=== PATIENT | female | born 1940 | race African-American/Black ===

== ENCOUNTER 2019-08-04 11:56 | Inpatient (IN) | payer OTHER, BC ==
--- NOTE | 2019-08-04 12:34 | PDOC ---
History of Present Illness - General Chief Complaint: Chronic pain Stated Complaint: Weakness Time Seen by Provider: 08/04/19 12:20 History Source: Patient, Family Exam Limitations: No Limitations - History of Present Illness Initial Comments: 08/04/19 12:09 Sources: Patient and Daughter PCP: Dr. Jensen Rheum: Dr. Beach @ [facility] HPI: 79yo F PMH DM, HLD, RA, Fibromyalgia, Asthma presenting for several days of worsening join and muscle pains. Patient receives monthly injections for her RA at [facility] with Dr. Beach, reports that the end of each month her chronic aches and pains worsen until after she received her injection. She was scheduled for an injection at 11AM this morning but when she woke up her aches and pains were bad enough that she couldn't get up and make it to her appointment so her daughter called EMS. She took all of her AM medications as prescribed. Has not tried any Tylenol / ibuprofen etc for this pain episode. Denies chest pain, SOB, fevers, chills, nausea, diarrhea, recent illenss, sick contacts. All: NKDA, Shellfish Meds: Gabapentin, Januvia, Metformin, Mamenda, Folic Acid, Atorvastatin, Infusions for RA PMH: DM, HLD, RA, Fibromyalgia, Asthma PSH: L Knee arthroplasty SHx: No smoking / ETOH / illicits Past History - Travel Traveled outside of the country in the last 30 days: No Close contact w/someone who was outside of country & ill: No - Past Medical History Allergies/Adverse Reactions: Allergies Allergy/AdvReac Type Severity Reaction Status Date / Time No Known Allergies Allergy Verified 08/04/19 12:20 Home Medications: Ambulatory Orders Amlodipine Besylate 5 mg PO DAILY 08/04/19 Atorvastatin Ca [Lipitor] 20 mg PO HS 08/04/19 Diclofenac Sodium/Misoprostol [Diclofenac-Misoprost 50-0.2 Tb] 1 each PO TID PRN 08/04/19 Folic Acid 1 mg PO DAILY 08/04/19 Gabapentin 300 mg PO HS 08/04/19 Gabapentin 600 mg PO BID 08/04/19 Glimepiride 1 mg PO DAILY 08/04/19 Hydrochlorothiazide 25 mg PO DAILY 08/04/19 Memantine HCl 10 mg PO BID 08/04/19 Metformin HCl [Glucophage] 1,000 mg PO BID 08/04/19 Sitagliptin Phosphate [Januvia] 100 mg PO DAILY 08/04/19 Review of Systems - Review of Systems Able to Perform ROS?: Yes Is the patient limited Kyrgyz proficient: Yes Constitutional: No: Chills, Diaphoresis, Fever HEENTM: No: Recent change in vision, Nose Congestion, Throat Pain Respiratory: No: Cough, Shortness of Breath, Wheezing Cardiac (ROS): No: Chest Pain, Edema, Irregular Heart Rate, Palpitations, Chest Tightness ABD/GI: No: Constipated, Diarrhea, Nausea, Poor Appetite, Poor Fluid Intake, Vomiting : No: Dysuria, Discharge, Frequency, Flank Pain Musculoskeletal: Yes: See HPI, Joint Pain, Joint Swelling, Muscle Pain, Muscle Weakness, Joint Stiffness Integumentary: No: Bruising, Erythema, Pallor, Rash Neurological: Yes: Unsteady Gait (secondary to pain / concern over falling). No : Headache, Numbness, Tingling, Weakness Psychiatric: No: Stressors, Change in Appetite Endocrine: No: Increased Urine, Unexplained Weight Gain, Unexplained Weight Loss Hematologic/Lymphatic: No: Anemia, Blood Clots, Easy Bleeding All Other Systems: Reviewed and Negative *Physical Exam - Physical Exam 08/04/19 14:24 Vitals reviewed, AFVSS, tachycardic GEN: Obese, appears stated age, NAD, uncomfortable with extremity movement - stiff. AAOx3. HEENT: NCAT, EOMI, PERRL. Sclera anicteric, non-injected. No facial asymmetry. Moist mucous membranes. Normal voice. Trachea midline. CV: Tachycardic, NSR, S1/S2, no murmurs / rubs / gallops appreciated. LUNG: Diffuse dry crackles in upper/mid lung mckeon, normal work of breathing. No wheezes or cough. Speaking full sentences. GI: Soft, NTND, +BS, no guarding, no rebound. No masses. EXTREMITIES: Difficult ROM 2/2 pain and stiffness. Some overlying join effusions over knees. No LE edema. SKIN: Warm, dry, no rashes appreciated, non-jaundiced. PSYCH: Normal mood and affect. Cooperative and appropriate. NEURO: CN grossly intact. Moving all extremities well. Normal strength and sensation grossly. ED Treatment Course - LABORATORY CBC & Chemistry Diagram: 08/04/19 13:48 08/04/19 13:48 Medical Decision Making - Medical Decision Making 08/04/19 14:05 79yo F PMH DM, HLD, RA, fibromyalgia, asthma presenting with acute on chronic joint/muscle pains in setting of being due for rheum injection today. - CBC, CMP, Cardiac, TSH - UA, UCx - EKG, CXR - IV placed by me in R forearm under US guidance 08/04/19 14:17 - IV pulled out - Tylenol order changed to PO - Plan for discharge if patient stable and ambulatory / pain controlled 08/04/19 14:33 CXR: R base atelectasis, elevated R hemidiaphragm, enlarged heart, no effusion or infiltrate noted 08/04/19 14:36 - WBC 13.1 - mild leukocytosis - Hgb 9.0, no baseline available 08/04/19 15:05 - Toradol ordered - PO Prednisone ordered - UA collected via straight cath, sent 08/04/19 16:31 - Admit for RA flare, inability to ambulate 08/04/19 17:46 - No UTI on UA Dispo: Med/Surg Discharge - Discharge Information Problems reviewed: Yes Clinical Impression/Diagnosis: Rheumatoid arthritis flare, Inability to ambulate due to multiple joints Condition: Guarded - Admission Yes - Follow up/Referral Referrals: Geraldo Moeller MD [Primary Care Provider] - - Patient Discharge Instructions - Post Discharge Activity
[2019-08-04] MEDS ORDERED: SODIUM CHLORIDE 0.9% 500 ML INFUS.BAG IV ONE (12:50)
--- NOTE | 2019-08-04 13:26 | PDOC ---
Attending Attestation - Resident Resident Name: Jonathan Spears - ED Attending Attestation I have performed the following: I have examined & evaluated the patient, The case was reviewed & discussed with the resident, I agree w/resident's findings & plan - HPI HPI: 08/04/19 13:26 HPI: 79yo F PMH DM, HLD, RA, Fibromyalgia, Asthma presenting for several days of worsening join and muscle pains. Patient receives monthly injections for her RA at [facility] with Dr. Beach, reports that the end of each month her chronic aches and pains related to fibromyalgia and RA worsen until after she received her injection. She was scheduled for an injection at 11AM this morning but when she woke up her aches and pains were bad enough that she couldn't get up and make it to her appointment so her daughter called EMS. She took all of her AM medications as prescribed. Has not tried any Tylenol / ibuprofen etc for this pain episode. has not been able to walk 08/04/19 15:06 - Physicial Exam PE: 08/04/19 13:26 Agree with the resident's HPI and PE as documented in the electronic medical record. NAD, well appearing, EOMI, PERRL, nl conjunctiva, anicteric; neck supple. lungs clear, +tachycardic abdomen soft nontender. no rebound, guarding. Back nontender. HOGAN x4, no focal neuro deficits. No peripheral edema. normal color for ethnicity, WWP. +bilateral lower extrem muscle tenderness. 08/04/19 15:05 - Medical Decision Making 08/04/19 13:26 Vital Signs Temp Pulse Resp BP Pulse Ox 98.8 F 109 H 16 132/80 98 08/04/19 12:20 08/04/19 12:20 08/04/19 12:20 08/04/19 12:20 08/04/19 12:36 vitals no fever ddx, RA flare, myalgia, fibromylagia, arthralgia no infectious sx, no systemic sx. doubt vascular pathology. normotensive, +tachycardia, likely pain given analgesia, steroid, for the RA reassess ambulatory trial Mild anemia noted as well as leukocytosis could be related to steroid injections. Troponin is negative, LFTs are normal. Magnesium is mildly low we will replete. TSH is normal admit for RA flare, pain control, unable to ambulate, unsafe for discharge. admitting to Dr Davila, seen by JOEL Landers. 08/04/19 18:49
--- NOTE | 2019-08-04 13:34 | EKG ---
Test Reason : Blood Pressure : / mmHG Vent. Rate : 111 BPM Atrial Rate : 111 BPM P-R Int : 142 ms QRS Dur : 072 ms QT Int : 308 ms P-R-T Axes : 038 -22 020 degrees QTc Int : 418 ms SINUS TACHYCARDIA WITH OCCASIONAL PREMATURE VENTRICULAR COMPLEXES POSSIBLE LEFT ATRIAL ENLARGEMENT LEFT VENTRICULAR HYPERTROPHY POSSIBLE LATERAL INFARCT , AGE UNDETERMINED ABNORMAL ECG NO PREVIOUS ECGS AVAILABLE Confirmed by MD TYREL, KIRA ([id number]) on 08/04/2019 1:34:05 PM Referred By: Confirmed By:KIRA SARAH MD
[2019-08-04] MEDS ORDERED: ACETAMINOPHEN 500 MG TABLET (FP) PO ONE (14:15)
[2019-08-04] MEDS ORDERED: ACETAMINOPHEN 325 MG TABLET (FP) ONE (14:18)
[2019-08-04 14:21] LABS: BASO % 1.2 % (0-2.0); EOS % 3.4 % (0-4.5); HEMATOCRIT 28.5 % (32.4-45.2); LYMPH % 21.2 % (8-40); MCHC 31.4 g/dl (32.0-36.0); MEAN CELL VOLUME 61.8 fl (80-96); MEAN PLT VOLUME 9.4 fl (7.5-11.1); MONO % 6.9 % (3.8-10.2); NEUT % 67.3 % (42.8-82.8); PLATELET COUNT 374 K/MM3 (134-434); RBC 4.62 M/mm3 (3.60-5.2); RDW 17.2 % (11.6-15.6); WHITE BLOOD COUNT 13.1 K/mm3 (4.0-10.0)
[2019-08-04 14:23] LABS: MCH 19.4 pg (25.7-33.7)
[2019-08-04] MEDS ORDERED: KETOROLAC TROMETHAMINE 15 MG/ML VIAL IM ONE (14:40)
[2019-08-04] MEDS ORDERED: predniSONE 20 MG TABLET (UD) PO ONE (15:02)
[2019-08-04 15:03] LABS: ALBUMIN 2.8 g/dl (3.4-5.0); BILIRUBIN,TOTAL 0.2 mg/dL (0.2-1); BLOOD UREA NITROGEN 27.4 mg/dL (7-18); CALCIUM 9.2 mg/dL (8.5-10.1); CREATININE 1.2 mg/dL (0.55-1.3); MAGNESIUM 1.7 mg/dL (1.8-2.4); N-TERMINAL BNP 78.5 pg/ml (5-450); POTASSIUM 5.6 mmol/L (3.5-5.1); TOT PROT 8.2 g/dl (6.4-8.2)
[2019-08-04] MEDS ORDERED: predniSONE 20 MG TABLET (UD) ONE (15:11)
[2019-08-04] MEDS ORDERED: KETOROLAC TROMETHAMINE 15 MG/ML VIAL ONE (15:11)
[2019-08-04] MEDS ORDERED: MAGNESIUM OXIDE 400 MG TABLET (FP) PO ONE (15:14)
[2019-08-04 15:50] LABS: ANISOCYTOSIS 2+; MACROCYTOSIS 0; PLATELET ESTIMATE NORMAL; TARGET CELLS 2+; TEAR DROP CELLS 1+
[2019-08-04] MEDS ORDERED: MAGNESIUM OXIDE 400 MG TABLET (FP) ONE (16:17)
[2019-08-04 17:35] LABS: URINE APPEARANCE Clear; URINE BILIRUBIN Negative (NEGATIVE); URINE COLOR Yellow; URINE GLUCOSE (UA) Negative (NEGATIVE); URINE KETONE Negative (NEGATIVE); URINE LEUK ESTERASE 1+ (NEGATIVE); URINE NITRITE Negative (NEGATIVE); URINE PROTEIN 1+ (NEGATIVE); URINE UROBILINOGEN 0.2 mg/dL (0.2-1.0)
[2019-08-04 18:16] LABS: URINE RBC 2.3 /hpf (0-4); URINE WBC 19.8 /hpf (0-5)
[2019-08-04 18:17] LABS: EPI CELLS 4.9 /HPF (0-5/HPF); HYALINE CASTS 23.84 /lpf (0-8); URINE BACTERIA 2.9 /hpf (NEGATIVE)
[2019-08-04] MEDS ORDERED: SODIUM POLYSTYRENE SULFONATE 15 GM/60 ML BOTTLE PO ONE (19:21)
[2019-08-04] MEDS ORDERED: SENNOSIDES 8.6MG TABLET (FP) PO PRN (19:26)
[2019-08-04] MEDS ORDERED: HEPARIN NA (PORCINE) 5,000 UNITS/ML 1ML VIAL SQ SCH (19:30)
--- NOTE | 2019-08-04 21:13 | HP ---
Admitting History and Physical - Admission Chief Complaint: diffuse joint pain History of Present Illness: 79 year old F with h/o HLD, rheumatoid arthritis, DMII, fibromyalgia presents to ED for evaluation after awakening with acute pain and inability to get out bed. At baseline, pt suffers from chronic pain and is wheelchair bound after a left femur fracture in 2018. She follows with PCP and marketing technology specialist at [facility] and receives monthly injections for her RA. After her fracture in 2018, she was prescribed home PT but did not complete course due to severe deconditioning. Both and daughter and patient reports her chronic pain has been gradually worsening over the last several months. She had an appointment with her marketing technology specialist today (08/04) but did not attend due to the acute nature of her pain. Her daughter activated EMS and pt was taken to [facility] for evaluation. Pt denies fever, chills, nausea, vomiting, chest pain, SOB. In ED: Vitals: BP 132/80, HR 109bpm, RR 16, O2 sat 98%, T 98.8 CXR: R base atelectasis, elevated R hemidiaphragm, enlarged heart, no effusion or infiltrate noted Labs: WBC 13.1, H/H 9/28.5, Cr 1.2, K = 5.6 Pt treated with prednisone 60mg, APAP 975mg and toradol 15mg History Source: Family Member (daughter) Limitations to Obtaining History: Poor Historian - Past Medical History Cardiovascular: Yes: HTN, Hyperlipdemia Reproductive: Yes: Postmenopausal Heme/Onc: Yes: Anemia Musculoskeletal: Yes: Osteoarthritis Rheumatology: Yes: Fibromyalgia, Rheumatoid Arthritis - Past Surgical History Additional Past Surgical History: Left knee replacement Left femur fracture - Advance Directives Advance Directives: Yes: Health Care Proxy ( Elle Becker daughter: [phone] ) - Smoking History Smoking history: Never smoked Have you smoked in the past 12 months: No - Alcohol/Substance Use Hx Alcohol Use: No History of Substance Use: reports: None - Social History Usual Living Arrangement: Yes: With Spouse, With Child ADL: Support Services (pt is WC bound. 100% dependent on daughter, she has no home services) Occupation: Retired History of Recent Travel: No Home Medications - Allergies Allergies/Adverse Reactions: Allergies Allergy/AdvReac Type Severity Reaction Status Date / Time shellfish derived Allergy Verified 01/14/20 21:20 - Home Medications Home Medications: Ambulatory Orders Amlodipine Besylate 5 mg PO DAILY 08/04/19 Atorvastatin Ca [Lipitor] 20 mg PO HS 08/04/19 Diclofenac Sodium/Misoprostol [Diclofenac-Misoprost 50-0.2 Tb] 1 each PO TID PRN 08/04/19 Folic Acid 1 mg PO DAILY 08/04/19 Gabapentin 300 mg PO HS 08/04/19 Gabapentin 600 mg PO BID 08/04/19 Glimepiride 1 mg PO DAILY 08/04/19 Hydrochlorothiazide 25 mg PO DAILY 08/04/19 Memantine HCl 10 mg PO BID 08/04/19 Metformin HCl [Glucophage] 1,000 mg PO BID 08/04/19 Sitagliptin Phosphate [Januvia] 100 mg PO DAILY 08/04/19 Family Medical History Other Family History: Mother (36)asthma. Father (50s) unknown. MGM (79) HTN, OA, MA Review of Systems - Review of Systems Constitutional: reports: Weakness Eyes: reports: No Symptoms HENT: reports: No Symptoms Neck: reports: No Symptoms Cardiovascular: reports: No Symptoms Respiratory: reports: No Symptoms Gastrointestinal: reports: No Symptoms Genitourinary: reports: No Symptoms Breasts: reports: No Symptoms Reported Musculoskeletal: reports: Joint Pain, Muscle Weakness Integumentary: reports: No Symptoms Neurological: reports: Unsteady Gait, Weakness Endocrine: reports: No Symptoms Hematology/Lymphatic: reports: No Symptoms Psychiatric: reports: No Symptoms Physical Examination Vital Signs: Vital Signs Temperature 97.9 F 08/04/19 19:33 Pulse Rate 101 H 08/04/19 19:33 Respiratory Rate 18 08/04/19 19:33 Blood Pressure 133/104 H 08/04/19 19:33 O2 Sat by Pulse Oximetry (%) 96 08/04/19 19:33 Constitutional: Yes: Calm, Obese Eyes: Yes: Conjunctiva Clear, PERRL HENT: Yes: Atraumatic, Normocephalic, Other (POOR DENTITION) Neck: Yes: Supple Cardiovascular: Yes: Regular Rate and Rhythm Respiratory: Yes: Regular, CTA Bilaterally Gastrointestinal: Yes: Normal Bowel Sounds, Soft, Abdomen, Obese ...Rectal Exam: Yes: Deferred Renal/: Yes: Incontinence Musculoskeletal: Yes: Joint Stiffness Extremities: Yes: Other (well healed left knee incision) Edema: No Peripheral Pulses WNL: Yes Peripheral Pulses: Left Radial: 2+, Right Radial: 2+ Integumentary: Yes: WNL Neurological: Yes: Alert, Oriented Psychiatric: Yes: Alert, Oriented Labs: CBC, BMP 08/04/19 13:48 08/04/19 13:48 Imaging - Results Chest X-ray: Report Reviewed (CXR 08/04/2019 Impression: There are no prior studies for comparison. There is an elevated right hemidiaphragm with large heart, unfolded aorta and some minimal atelectatic change at the right base. There is no sign of infiltrate or failure. The bones and soft tissues are intact. Correlation recommended. Reported By: Geraldo Staples MD 08/04/19 [id number]) EKG: Report Reviewed (EKG 08/04/2019 (my read) :ST 111bpm with occ PVCs. Q-waves inferiorly) Problem List - Problems (1) Hyperlipidemia associated with type 2 diabetes mellitus Assessment/Plan: continue lipitor 20mg cardiac-diabetic diet fasting lipids with AM labs Code(s): E11.69 - TYPE 2 DIABETES MELLITUS WITH OTHER SPECIFIED COMPLICATION; E78.5 - HYPERLIPIDEMIA, UNSPECIFIED (2) Diabetes mellitus type 2 in obese Assessment/Plan: hold metformin, glimepiride and januvia insulin SS Fingerstick AC/HS Code(s): E11.69 - TYPE 2 DIABETES MELLITUS WITH OTHER SPECIFIED COMPLICATION; E66.9 - OBESITY, UNSPECIFIED (3) Fibromyalgia Assessment/Plan: PT consult to mobilize pt Code(s): M79.7 - FIBROMYALGIA (4) Rheumatoid arthritis Assessment/Plan: rheum consult pain management - continue APAP, diclofenac and neurontin SW consult in AM to assess for disharge to rehab facility (daughter agrees with short term rehab) Code(s): M06.9 - RHEUMATOID ARTHRITIS, UNSPECIFIED (5) Prophylactic measure Assessment/Plan: daily PT SC heparin 3xdaily turn/position Q2hrs Code(s): Z29.9 - ENCOUNTER FOR PROPHYLACTIC MEASURES, UNSPECIFIED (6) Dementia Assessment/Plan: continue memantine reorient and redirect as needed Code(s): F03.90 - UNSPECIFIED DEMENTIA WITHOUT BEHAVIORAL DISTURBANCE Assessment/Plan Code status: Full code Visit type - Emergency Visit Emergency Visit: Yes ED Registration Date: 08/04/19 Care time: The patient presented to the Emergency Department on the above date and was hospitalized for further evaluation of their emergent condition. - New Patient This patient is new to me today: Yes Date on this admission: 08/04/19 - Critical Care Critical Care patient: No
[2019-08-04] MEDS: GABAPENTIN 300 MG CAPSULE PO SCH (22:25)
[2019-08-04] MEDS: ATORVASTATIN CA 20 MG TABLET (FP) PO SCH (22:25)
[2019-08-04] MEDS: HEPARIN NA (PORCINE) 5,000 UNITS/ML 1ML VIAL SQ SCH (22:25)
[2019-08-04] MEDS: DOCUSATE SODIUM 100 MG CAPSULE (FP) PO SCH (22:25)
[2019-08-04] MEDS: INSULIN SLIDING SCALE (NOVOLOG) 1 VIAL SQ SCH (22:26)
[2019-08-04] MEDS: MEMANTINE HCL 10 MG TABLET (FP) PO SCH (22:27)
[2019-08-04] MEDS: DICLOFENAC SODIUM 25 MG TABLET.DR PO SCH (23:31)
[2019-08-05] MEDS: GABAPENTIN 300 MG CAPSULE PO SCH ×4 (00:57→22:46)
[2019-08-05 01:55] VITALS: BMI 35.7
[2019-08-05] MEDS: INSULIN SLIDING SCALE (NOVOLOG) 1 VIAL SQ SCH ×4 (06:16→22:50)
[2019-08-05] MEDS: HEPARIN NA (PORCINE) 5,000 UNITS/ML 1ML VIAL SQ SCH ×3 (06:16→22:48)
[2019-08-05] MEDS: DOCUSATE SODIUM 100 MG CAPSULE (FP) PO SCH ×3 (06:17→22:47)
--- NOTE | 2019-08-05 07:55 | PN ---
Progress Note, Physician Chief Complaint: Pain persists in joint with right shoulder being the worst. States the swelling is much improved History of Present Illness: 79 y/o female with PMH of RA, HLD, DM, FM, chronic pain presenting with acute pain and inability to get out of bed. Pt is wheelchair bound after left femur fracture in 2018 - Current Medication List Current Medications: Active Medications Acetaminophen (Tylenol -) 650 mg PO Q6H PRN PRN Reason: PAIN LEVEL 4 - 6 Amlodipine Besylate (Norvasc -) 5 mg PO DAILY [facility] Atorvastatin Calcium (Lipitor -) 20 mg PO HS [facility] Last Admin: 08/04/19 22:25 Dose: 20 mg Diclofenac Sodium (Voltaren -) 50 mg PO BID [facility] Last Admin: 08/04/19 23:31 Dose: 50 mg Docusate Sodium (Colace -) 100 mg PO TID [facility] Last Admin: 08/05/19 06:17 Dose: 100 mg Folic Acid (Folic Acid -) 1 mg PO DAILY [facility] Gabapentin (Neurontin -) 300 mg PO [facility] Last Admin: 08/05/19 00:57 Dose: Not Given Gabapentin (Neurontin -) 600 mg PO BID [facility] Last Admin: 08/04/19 22:25 Dose: 600 mg Heparin Sodium (Porcine) (Heparin -) 5,000 unit SQ TID [facility] Last Admin: 08/05/19 06:16 Dose: 5,000 unit Hydrochlorothiazide (Hctz -) 25 mg PO DAILY [facility] Insulin Aspart (Novolog Vial Sliding Scale -) 1 vial SQ [facility]; Protocol Last Admin: 08/05/19 06:16 Dose: 2 units Memantine (Namenda -) 10 mg PO BID [facility] Last Admin: 08/04/19 22:27 Dose: 10 mg Senna (Senna -) 2 tab PO HS PRN PRN Reason: CONSTIPATION - Objective Vital Signs: Vital Signs Temperature 97.4 F L 08/05/19 06:00 Pulse Rate 103 H 08/05/19 06:00 Respiratory Rate 18 08/05/19 06:00 Blood Pressure 136/79 08/05/19 06:00 O2 Sat by Pulse Oximetry (%) 96 08/04/19 22:35 Constitutional: Yes: Well Nourished, No Distress, Calm Eyes: Yes: WNL, Conjunctiva Clear HENT: Yes: WNL, Atraumatic, Normocephalic Neck: Yes: WNL, Supple, Trachea Midline Cardiovascular: Yes: WNL, Regular Rate and Rhythm Respiratory: Yes: WNL, Regular, CTA Bilaterally Gastrointestinal: Yes: WNL, Normal Bowel Sounds ...Rectal Exam: Yes: Deferred Genitourinary: Yes: WNL Breast(s): Yes: WNL Musculoskeletal: Yes: Back Pain, Joint Stiffness, Joint Swelling, Muscle Weakness (wheelchair bound) Extremities: Yes: WNL Edema: No Peripheral Pulses WNL: Yes Peripheral Pulses: Left Radial: 2+, Right Radial: 2+, Left Doralis Pedis: 2+, Right Dorsalis Pedis: 2+, Left Femoral: 2+, Right Femoral: 2+ Integumentary: Yes: Incision (healed knee scar) Neurological: Yes: WNL, Alert, Oriented, Weakness Labs: CBC, BMP 08/04/19 13:48 08/04/19 13:48 - ....Imaging Chest X-ray: Image Reviewed (no effusions or infiltrates) Problem List - Problems (1) Dementia Assessment/Plan: c/w namenda supportive care Code(s): F03.90 - UNSPECIFIED DEMENTIA WITHOUT BEHAVIORAL DISTURBANCE (2) Diabetes mellitus type 2 in obese Assessment/Plan: BGM AC/HS with novolog sliding scale well controlled can restart januvia/glucophage on DC Code(s): E11.69 - TYPE 2 DIABETES MELLITUS WITH OTHER SPECIFIED COMPLICATION; E66.9 - OBESITY, UNSPECIFIED (3) Fibromyalgia Assessment/Plan: appreciate rheumatology comsultation prednisone decreased to 20mg daily x 3 days and then 15mg -wheelchair bound at home/w PT Code(s): M79.7 - FIBROMYALGIA (4) Hyperlipidemia Assessment/Plan: c/w atrovastatin low fat/chol diet Code(s): E78.5 - HYPERLIPIDEMIA, UNSPECIFIED (5) Prophylactic measure Assessment/Plan: FEN Fluids: adequate PO intake Electrolytes: monitor & replete as needed Nutrition: low fat/chol DVT moderate risk sq heparin Dispo Maintain as inpatient full code discharge planning to SNF Code(s): Z29.9 - ENCOUNTER FOR PROPHYLACTIC MEASURES, UNSPECIFIED (6) Rheumatoid arthritis Assessment/Plan: c/w prednisone awaiting records from home rheumotologist-has been on injectables the past Code(s): M06.9 - RHEUMATOID ARTHRITIS, UNSPECIFIED (7) Chronic pain Assessment/Plan: wheelchair bound since 2018 c/w gabapentin c/w PT offered lidocaine patches and pt claims they have been ineffective in the past Code(s): G89.29 - OTHER CHRONIC PAIN Visit type - Emergency Visit Emergency Visit: Yes ED Registration Date: 08/04/19 Care time: The patient presented to the Emergency Department on the above date and was hospitalized for further evaluation of their emergent condition. - New Patient This patient is new to me today: Yes Date on this admission: 08/05/19 - Critical Care Critical Care patient: No - Discharge Referral Referred to [facility] Med P.C.: No
[2019-08-05 09:07] LABS: HEMATOCRIT 25.9 % (32.4-45.2); HEMOGLOBIN 8.2 GM/dL (10.7-15.3); MCHC 31.8 g/dl (32.0-36.0); MEAN PLT VOLUME 9.7 fl (7.5-11.1); PLATELET COUNT 318 K/MM3 (134-434); RBC 4.18 M/mm3 (3.60-5.2); WHITE BLOOD COUNT 9.1 K/mm3 (4.0-10.0)
[2019-08-05 09:16] LABS: MCH 19.7 pg (25.7-33.7)
[2019-08-05 09:28] LABS: BLOOD UREA NITROGEN 33.2 mg/dL (7-18); CALCIUM 8.7 mg/dL (8.5-10.1); CREATININE 1.3 mg/dL (0.55-1.3); MAGNESIUM 1.9 mg/dL (1.8-2.4); POTASSIUM 4.3 mmol/L (3.5-5.1)
[2019-08-05] MEDS ORDERED: predniSONE 20 MG TABLET (UD) PO SCH (10:00)
--- NOTE | 2019-08-05 10:00 | CONSULT ---
Consult Consult Specialty:: Rheumatology - History of Present Illness History of Present Illness: 79 year old Female with h/o HLD, rheumatoid arthritis, DMII, fibromyalgia, s/p left femur fracture in 2018, admitted with significant diffuse pain and inability to walk. The patient is a poor historian, I cannot get information of details of present illness or history of rheumatoid arthritis. [facility] Beach. The patient is on Cimzia SC monthly. She was not in her office and could not remember oif the patient rakes other DMARDs. She has missed doses of the medication , she reported increased pain and was started on Prednisone 20 mg/d. . I left a message to her daughter to get more information. On admission she was given Prednisone 60 mg PO and at the present time she is feeling better and can move her hands well. - History Source History Provided By: Medical Record - Past Medical History Cardio/Vascular: Yes: HTN, Hyperlipdemia Musculoskeletal: Yes: Osteoarthritis Rheumatology: Yes: Fibromyalgia, Rheumatoid Arthritis - Alcohol/Substance Use Hx Alcohol Use: No History of Substance Use: reports: None - Smoking History Smoking history: Never smoked Have you smoked in the past 12 months: No - Social History ADL: Support Services (pt is WC bound. 100% dependent on daughter, she has no home services) Occupation: Retired History of Recent Travel: No Home Medications - Allergies Allergies/Adverse Reactions: Allergies Allergy/AdvReac Type Severity Reaction Status Date / Time shellfish derived Allergy Verified 08/04/19 21:20 - Home Medications Home Medications: Ambulatory Orders Amlodipine Besylate 5 mg PO DAILY 08/04/19 Atorvastatin Ca [Lipitor] 20 mg PO HS 08/04/19 Diclofenac Sodium/Misoprostol [Diclofenac-Misoprost 50-0.2 Tb] 1 each PO TID PRN 08/04/19 Folic Acid 1 mg PO DAILY 08/04/19 Gabapentin 300 mg PO HS 08/04/19 Gabapentin 600 mg PO BID 08/04/19 Glimepiride 1 mg PO DAILY 08/04/19 Hydrochlorothiazide 25 mg PO DAILY 08/04/19 Memantine HCl 10 mg PO BID 08/04/19 Metformin HCl [Glucophage] 1,000 mg PO BID 08/04/19 Sitagliptin Phosphate [Januvia] 100 mg PO DAILY 08/04/19 Review of Systems Unable to obtain ROS, reason: Patient is a poor histori Physical Exam Vital Signs: Vital Signs Temperature 97.4 F L 08/05/19 06:00 Pulse Rate 103 H 08/05/19 06:00 Respiratory Rate 18 08/05/19 06:00 Blood Pressure 136/79 08/05/19 06:00 O2 Sat by Pulse Oximetry (%) 96 08/04/19 22:35 Constitutional: Yes: Mild Distress Eyes: Yes: WNL HENT: Yes: WNL Neck: Yes: WNL Cardiovascular: Yes: WNL Respiratory: Yes: WNL Gastrointestinal: Yes: WNL Musculoskeletal: Yes: Other (Subluxation of MCPs and stigmata of rheumatoid arthritis, and has tenderness and swelling of the left 3rd PIP. No other active joints.) Labs: CBC, BMP 08/05/19 08:00 08/05/19 08:00 Laboratory Tests 08/04/19 08/04/19 08/04/19 13:48 13:48 15:50 Random Glucose 107 H Calcium 9.2 Total Bilirubin 0.2 AST 22 ALT 20 Alkaline Phosphatase 86 Creatine Kinase 123 Troponin I < 0.02 B-Natriuretic Peptide 78.5 Total Protein 8.2 Albumin 2.8 L Urine Appearance Clear Urine pH 5.0 Ur Specific [place] 1.015 Urine Protein 1+ H Urine Glucose (UA) Negative Urine Ketones Negative Urine Blood Negative Urine Nitrite Negative Urine Bilirubin Negative Urine Urobilinogen 0.2 Ur Leukocyte Esterase 1+ H Urine WBC (Auto) 19.8 Urine RBC (Auto) 2.3 Urine Casts (Auto) 23.84 Problem List - Problems (1) Rheumatoid arthritis Assessment/Plan: Rheumatoid arthritis treated probably with biological DMARDs. She was admitted with significant pain - it is not clear where, and was treated with Prednisone 60 mg PO. At the present time she has minimal disease activity and no tenderness in fibrositic tender points. I am waiting for additional information requested to her daughter. Plan: Decrease Prednisone to 20 mg/d and in 3 days decrease to 15 mg. Continue other medications. Labs: ESR. Code(s): M06.9 - RHEUMATOID ARTHRITIS, UNSPECIFIED
[2019-08-05] MEDS: MEMANTINE HCL 10 MG TABLET (FP) PO SCH ×2 (10:08→22:47)
[2019-08-05] MEDS: FOLIC ACID 1 MG TABLET (FP) PO SCH (10:08)
[2019-08-05] MEDS: amLODIPine BESYLATE 5 MG TABLET (FP) PO SCH (10:08)
[2019-08-05] MEDS: HYDROCHLOROTHIAZIDE 25 MG TABLET (FP) PO SCH (10:09)
[2019-08-05] MEDS ORDERED: PT OWN MED DRAWER 7, Y5N ONE ×2 (10:33→12:10)
[2019-08-05] MEDS: DICLOFENAC SODIUM 25 MG TABLET.DR PO SCH ×2 (10:44→22:47)
[2019-08-05] MEDS: ATORVASTATIN CA 20 MG TABLET (FP) PO SCH (22:47)
[2019-08-06] MEDS: INSULIN SLIDING SCALE (NOVOLOG) 1 VIAL SQ SCH ×4 (06:35→21:31)
[2019-08-06] MEDS: DOCUSATE SODIUM 100 MG CAPSULE (FP) PO SCH ×3 (06:36→21:22)
[2019-08-06] MEDS: HEPARIN NA (PORCINE) 5,000 UNITS/ML 1ML VIAL SQ SCH ×3 (06:36→21:22)
--- NOTE | 2019-08-06 07:54 | PN ---
Progress Note, Physician Chief Complaint: Pain persists in joints. States the swelling is much improved from steroids. History of Present Illness: 79 y/o female with PMH of RA, HLD, DM, FM, chronic pain presenting with acute pain and inability to get out of bed. Pt is wheelchair bound after left femur fracture in 2018 - Current Medication List Current Medications: Active Medications Acetaminophen (Tylenol -) 650 mg PO Q6H PRN PRN Reason: PAIN LEVEL 4 - 6 Amlodipine Besylate (Norvasc -) 5 mg PO DAILY [facility] Last Admin: 08/05/19 10:08 Dose: 5 mg Atorvastatin Calcium (Lipitor -) 20 mg PO HS [facility] Last Admin: 08/05/19 22:47 Dose: 20 mg Diclofenac Sodium (Voltaren -) 50 mg PO BID [facility] Last Admin: 08/05/19 22:47 Dose: 50 mg Docusate Sodium (Colace -) 100 mg PO TID [facility] Last Admin: 08/06/19 06:36 Dose: 100 mg Folic Acid (Folic Acid -) 1 mg PO DAILY [facility] Last Admin: 08/05/19 10:08 Dose: 1 mg Gabapentin (Neurontin -) 300 mg PO HS [facility] Last Admin: 08/05/19 22:46 Dose: 300 mg Gabapentin (Neurontin -) 600 mg PO BID [facility] Last Admin: 08/05/19 22:46 Dose: 600 mg Heparin Sodium (Porcine) (Heparin -) 5,000 unit SQ TID [facility] Last Admin: 08/06/19 06:36 Dose: 5,000 unit Hydrochlorothiazide (Hctz -) 25 mg PO DAILY [facility] Last Admin: 08/05/19 10:09 Dose: 25 mg Insulin Aspart (Novolog Vial Sliding Scale -) 1 vial SQ [facility]; Protocol Last Admin: 08/06/19 06:35 Dose: 3 units Memantine (Namenda -) 10 mg PO BID [facility] Last Admin: 08/05/19 22:47 Dose: 10 mg Prednisone (Deltasone -) 20 mg PO DAILY [facility] Stop: 08/08/19 10:01 Prednisone (Deltasone -) 15 mg PO DAILY [facility] Senna (Senna -) 2 tab PO HS PRN PRN Reason: CONSTIPATION - Objective Vital Signs: Vital Signs Temperature 97.5 F L 08/06/19 06:29 Pulse Rate 81 08/06/19 06:29 Respiratory Rate 20 08/06/19 06:29 Blood Pressure 132/79 08/06/19 06:29 O2 Sat by Pulse Oximetry (%) 98 08/05/19 21:00 Additional Findings/Remarks: Constitutional: Yes: Well Nourished, No Distress, Calm Eyes: Yes: WNL, Conjunctiva Clear HENT: Yes: WNL, Atraumatic, Normocephalic Neck: Yes: WNL, Supple, Trachea Midline Cardiovascular: Yes: WNL, Regular Rate and Rhythm Respiratory: Yes: WNL, Regular, CTA Bilaterally Gastrointestinal: Yes: WNL, Normal Bowel Sounds ...Rectal Exam: Yes: Deferred Genitourinary: Yes: WNL Breast(s): Yes: WNL Musculoskeletal: Yes: Back Pain, Joint Stiffness, Joint Swelling, Muscle Weakness (wheelchair bound) Subluxation of MCPs and stigmata of rheumatoid arthritis, and has tenderness and swelling of the left 3rd PIP. No other active joints Extremities: Yes: WNL Edema: No Peripheral Pulses WNL: Yes Peripheral Pulses: Left Radial: 2+, Right Radial: 2+, Left Doralis Pedis: 2+, Right Dorsalis Pedis: 2+, Left Femoral: 2+, Right Femoral: 2+ Integumentary: Yes: Incision (healed knee scar) Neurological: Yes: WNL, Alert, Oriented, Weakness Labs: CBC, BMP 08/05/19 08:00 08/05/19 08:00 Problem List - Problems (1) Dementia Assessment/Plan: c/w namenda supportive care Code(s): F03.90 - UNSPECIFIED DEMENTIA WITHOUT BEHAVIORAL DISTURBANCE (2) Diabetes mellitus type 2 in obese Assessment/Plan: BGM AC/HS with novolog sliding scale well controlled can restart januvia/glucophage on DC Code(s): E11.69 - TYPE 2 DIABETES MELLITUS WITH OTHER SPECIFIED COMPLICATION; E66.9 - OBESITY, UNSPECIFIED (3) Fibromyalgia Assessment/Plan: appreciate rheumatology comsultation c/w prednisone 20mg daily x 1 more day and then 15mg -wheelchair bound at home c/w PT Code(s): M79.7 - FIBROMYALGIA (4) Hyperlipidemia Assessment/Plan: c/w atrovastatin low fat/chol diet Code(s): E78.5 - HYPERLIPIDEMIA, UNSPECIFIED (5) Prophylactic measure Assessment/Plan: FEN Fluids: adequate PO intake Electrolytes: monitor & replete as needed Nutrition: low fat/chol DVT moderate risk sq heparin Dispo Maintain as inpatient full code discharge planning to SNF Code(s): Z29.9 - ENCOUNTER FOR PROPHYLACTIC MEASURES, UNSPECIFIED (6) Rheumatoid arthritis Assessment/Plan: c/w prednisone tapering to 15mg daily tomorrow awaiting records from home rheumotologist-has been on injectables the past Code(s): M06.9 - RHEUMATOID ARTHRITIS, UNSPECIFIED (7) Chronic pain Assessment/Plan: wheelchair bound since 2018 c/w gabapentin c/w PT Code(s): G89.29 - OTHER CHRONIC PAIN Visit type - Emergency Visit Emergency Visit: Yes ED Registration Date: 08/04/19 Care time: The patient presented to the Emergency Department on the above date and was hospitalized for further evaluation of their emergent condition. - New Patient This patient is new to me today: No - Critical Care Critical Care patient: No - Discharge Referral Referred to [facility] Med P.C.: No
[2019-08-06] MEDS ORDERED: PT OWN MED DRAWER 7, Y5N ONE ×2 (09:10→21:20)
[2019-08-06] MEDS: DICLOFENAC SODIUM 25 MG TABLET.DR PO SCH ×2 (10:01→21:25)
[2019-08-06] MEDS: GABAPENTIN 300 MG CAPSULE PO SCH ×3 (10:02→21:43)
[2019-08-06] MEDS: FOLIC ACID 1 MG TABLET (FP) PO SCH (10:02)
[2019-08-06] MEDS: HYDROCHLOROTHIAZIDE 25 MG TABLET (FP) PO SCH (10:02)
[2019-08-06] MEDS: predniSONE 20 MG TABLET (UD) PO SCH (10:02)
[2019-08-06] MEDS: MEMANTINE HCL 10 MG TABLET (FP) PO SCH ×2 (10:02→21:23)
[2019-08-06] MEDS: amLODIPine BESYLATE 5 MG TABLET (FP) PO SCH (10:02)
[2019-08-06] MEDS: ACETAMINOPHEN 325 MG TABLET (FP) PO PRN (10:15)
[2019-08-06 10:46] LABS: BASO % 1.4 % (0-2.0); EOS % 0.8 % (0-4.5); HEMATOCRIT 29.6 % (32.4-45.2); HEMOGLOBIN 9.1 GM/dL (10.7-15.3); LYMPH % 26.2 % (8-40); MCHC 30.9 g/dl (32.0-36.0); MEAN CELL VOLUME 63.3 fl (80-96); MEAN PLT VOLUME 9.3 fl (7.5-11.1); MONO % 5.9 % (3.8-10.2); NEUT % 65.7 % (42.8-82.8); PLATELET COUNT 184 K/MM3 (134-434); RBC 4.67 M/mm3 (3.60-5.2); RDW 17.3 % (11.6-15.6); WHITE BLOOD COUNT 14.1 K/mm3 (4.0-10.0)
[2019-08-06 10:49] LABS: MCH 19.5 pg (25.7-33.7)
[2019-08-06 11:20] LABS: ALBUMIN 2.8 g/dl (3.4-5.0); BILIRUBIN,TOTAL 0.2 mg/dL (0.2-1); BLOOD UREA NITROGEN 33.2 mg/dL (7-18); CALCIUM 9.3 mg/dL (8.5-10.1); CREATININE 1.3 mg/dL (0.55-1.3)
[2019-08-06 11:33] LABS: ERYTHROCYTE SEDIMENTATION RATE 89 mm/hr (0-30)
[2019-08-06] MEDS: ATORVASTATIN CA 20 MG TABLET (FP) PO SCH (21:22)
[2019-08-07] MEDS: HEPARIN NA (PORCINE) 5,000 UNITS/ML 1ML VIAL SQ SCH ×3 (06:23→21:32)
[2019-08-07] MEDS: DOCUSATE SODIUM 100 MG CAPSULE (FP) PO SCH ×3 (06:23→21:32)
[2019-08-07] MEDS: INSULIN SLIDING SCALE (NOVOLOG) 1 VIAL SQ SCH ×4 (06:58→23:05)
--- NOTE | 2019-08-07 08:11 | PN ---
Progress Note, Physician Chief Complaint: Pain persists in joints. States the swelling has increased today. Would like to go to SNF when discharged History of Present Illness: 79 y/o female with PMH of RA, HLD, DM, FM, chronic pain presenting with acute pain and inability to get out of bed. Pt is wheelchair bound after left femur fracture in 2018 - Current Medication List Current Medications: Active Medications Acetaminophen (Tylenol -) 650 mg PO Q6H PRN PRN Reason: PAIN LEVEL 4 - 6 Last Admin: 08/06/19 10:15 Dose: 650 mg Amlodipine Besylate (Norvasc -) 5 mg PO DAILY [facility] Last Admin: 08/06/19 10:02 Dose: 5 mg Atorvastatin Calcium (Lipitor -) 20 mg PO HS [facility] Last Admin: 08/06/19 21:22 Dose: 20 mg Diclofenac Sodium (Voltaren -) 50 mg PO BID [facility] Last Admin: 08/06/19 21:25 Dose: 50 mg Docusate Sodium (Colace -) 100 mg PO TID [facility] Last Admin: 08/07/19 06:23 Dose: 100 mg Folic Acid (Folic Acid -) 1 mg PO DAILY [facility] Last Admin: 08/06/19 10:02 Dose: 1 mg Gabapentin (Neurontin -) 300 mg PO HS [facility] Last Admin: 08/06/19 21:43 Dose: Not Given Gabapentin (Neurontin -) 600 mg PO BID [facility] Last Admin: 08/06/19 21:24 Dose: 600 mg Heparin Sodium (Porcine) (Heparin -) 5,000 unit SQ TID [facility] Last Admin: 08/07/19 06:23 Dose: 5,000 unit Hydrochlorothiazide (Hctz -) 25 mg PO DAILY [facility] Last Admin: 08/06/19 10:02 Dose: 25 mg Insulin Aspart (Novolog Vial Sliding Scale -) 1 vial SQ [facility]; Protocol Last Admin: 08/07/19 06:58 Dose: 2 units Memantine (Namenda -) 10 mg PO BID [facility] Last Admin: 08/06/19 21:23 Dose: 10 mg Prednisone (Deltasone -) 20 mg PO DAILY [facility] Stop: 08/08/19 10:01 Last Admin: 08/06/19 10:02 Dose: 20 mg Prednisone (Deltasone -) 15 mg PO DAILY [facility] Senna (Senna -) 2 tab PO HS PRN PRN Reason: CONSTIPATION - Objective Vital Signs: Vital Signs Temperature 97.7 F 08/07/19 04:00 Pulse Rate 82 08/07/19 04:00 Respiratory Rate 18 08/07/19 04:00 Blood Pressure 143/88 08/07/19 04:00 O2 Sat by Pulse Oximetry (%) 95 08/06/19 21:00 Additional Findings/Remarks: Constitutional: Yes: Well Nourished, No Distress, Calm Eyes: Yes: WNL, Conjunctiva Clear HENT: Yes: WNL, Atraumatic, Normocephalic Neck: Yes: WNL, Supple, Trachea Midline Cardiovascular: Yes: WNL, Regular Rate and Rhythm Respiratory: Yes: WNL, Regular, CTA Bilaterally Gastrointestinal: Yes: WNL, Normal Bowel Sounds ...Rectal Exam: Yes: Deferred Genitourinary: Yes: WNL Breast(s): Yes: WNL Musculoskeletal: Yes: Back Pain, Joint Stiffness, Joint Swelling, Muscle Weakness (wheelchair bound) Subluxation of MCPs and stigmata of rheumatoid arthritis, and has tenderness and swelling of the left 3rd PIP. No other active joints Extremities: Yes: WNL Edema: No Peripheral Pulses WNL: Yes Peripheral Pulses: Left Radial: 2+, Right Radial: 2+, Left Doralis Pedis: 2+, Right Dorsalis Pedis: 2+, Left Femoral: 2+, Right Femoral: 2+ Integumentary: Yes: Incision (healed knee scar) Neurological: Yes: WNL, Alert, Oriented, Weakness Labs: CBC, BMP 08/06/19 10:15 08/06/19 10:15 Problem List - Problems (1) Dementia Assessment/Plan: c/w namenda supportive care Code(s): F03.90 - UNSPECIFIED DEMENTIA WITHOUT BEHAVIORAL DISTURBANCE (2) Diabetes mellitus type 2 in obese Assessment/Plan: BGM AC/HS with novolog sliding scale well controlled can restart januvia/glucophage on DC Code(s): E11.69 - TYPE 2 DIABETES MELLITUS WITH OTHER SPECIFIED COMPLICATION; E66.9 - OBESITY, UNSPECIFIED (3) Fibromyalgia Assessment/Plan: appreciate rheumatology comsultation c/w prednisone 20mg daily x 1 more day and then 15mg -wheelchair bound at home c/w PT Code(s): M79.7 - FIBROMYALGIA (4) Hyperlipidemia Assessment/Plan: c/w atrovastatin low fat/chol diet Code(s): E78.5 - HYPERLIPIDEMIA, UNSPECIFIED (5) Prophylactic measure Assessment/Plan: FEN Fluids: adequate PO intake Electrolytes: monitor & replete as needed Nutrition: low fat/chol DVT moderate risk sq heparin Dispo Maintain as inpatient full code discharge planning to SNF Code(s): Z29.9 - ENCOUNTER FOR PROPHYLACTIC MEASURES, UNSPECIFIED (6) Rheumatoid arthritis Assessment/Plan: c/w prednisone tapering to 15mg daily tomorrow awaiting records from home rheumotologist-has been on injectables the past Code(s): M06.9 - RHEUMATOID ARTHRITIS, UNSPECIFIED (7) Chronic pain Assessment/Plan: wheelchair bound since 2018 c/w gabapentin c/w PT Code(s): G89.29 - OTHER CHRONIC PAIN Visit type - Emergency Visit Emergency Visit: Yes ED Registration Date: 08/04/19 Care time: The patient presented to the Emergency Department on the above date and was hospitalized for further evaluation of their emergent condition. - New Patient This patient is new to me today: No - Critical Care Critical Care patient: No - Discharge Referral Referred to [facility] Med P.C.: No
[2019-08-07] MEDS ORDERED: PT OWN MED DRAWER 7, Y5N ONE (09:18)
[2019-08-07 09:24] LABS: BASO % 1.2 % (0-2.0); EOS % 3.4 % (0-4.5); HEMATOCRIT 28.1 % (32.4-45.2); HEMOGLOBIN 8.9 GM/dL (10.7-15.3); MCHC 31.6 g/dl (32.0-36.0); MEAN CELL VOLUME 61.8 fl (80-96); MEAN PLT VOLUME 9.8 fl (7.5-11.1); MONO % 5.2 % (3.8-10.2); NEUT % 55.2 % (42.8-82.8); PLATELET COUNT 276 K/MM3 (134-434); RBC 4.54 M/mm3 (3.60-5.2); WHITE BLOOD COUNT 12.1 K/mm3 (4.0-10.0)
[2019-08-07 09:27] LABS: MCH 19.5 pg (25.7-33.7)
[2019-08-07 10:06] LABS: ALBUMIN 2.7 g/dl (3.4-5.0); BILIRUBIN,TOTAL 0.1 mg/dL (0.2-1); BLOOD UREA NITROGEN 30.5 mg/dL (7-18); CREATININE 1.1 mg/dL (0.55-1.3); MAGNESIUM 2.1 mg/dL (1.8-2.4); POTASSIUM 3.9 mmol/L (3.5-5.1); TOT PROT 7.4 g/dl (6.4-8.2)
[2019-08-07] MEDS: ACETAMINOPHEN 325 MG TABLET (FP) PO PRN (10:08)
[2019-08-07] MEDS: GABAPENTIN 300 MG CAPSULE PO SCH ×3 (10:09→23:17)
[2019-08-07] MEDS: MEMANTINE HCL 10 MG TABLET (FP) PO SCH ×2 (10:09→21:32)
[2019-08-07] MEDS: HYDROCHLOROTHIAZIDE 25 MG TABLET (FP) PO SCH (10:10)
[2019-08-07] MEDS: predniSONE 20 MG TABLET (UD) PO SCH (10:10)
[2019-08-07] MEDS: FOLIC ACID 1 MG TABLET (FP) PO SCH (10:10)
[2019-08-07] MEDS: DICLOFENAC SODIUM 25 MG TABLET.DR PO SCH ×2 (10:10→21:33)
[2019-08-07] MEDS: amLODIPine BESYLATE 5 MG TABLET (FP) PO SCH (10:10)
[2019-08-07] MEDS ORDERED: INSULIN (NOVOLOG) ASPART 100 UNITS/ML 10ML VIAL SQ ONE (17:52)
--- NOTE | 2019-08-07 17:54 | DS ---
Physical Exam: SUBJECTIVE: Patient seen and examined Medcially stable for transfer to [facility]. OBJECTIVE: Vital Signs Period Temp Pulse Resp BP Sys/Ag Pulse Ox Last 24 Hr 97.6 F-98.5 F 82-101 16-20 138-148/72-88 95 PHYSICAL EXAM Constitutional: Yes: Well Nourished, No Distress, Calm Eyes: Yes: WNL, Conjunctiva Clear HENT: Yes: WNL, Atraumatic, Normocephalic Neck: Yes: WNL, Supple, Trachea Midline Cardiovascular: Yes: WNL, Regular Rate and Rhythm Respiratory: Yes: WNL, Regular, CTA Bilaterally Gastrointestinal: Yes: WNL, Normal Bowel Sounds ...Rectal Exam: Yes: Deferred Genitourinary: Yes: WNL Breast(s): Yes: WNL Musculoskeletal: Yes: Back Pain, Joint Stiffness, Joint Swelling, Muscle Weakness (wheelchair bound) Subluxation of MCPs and stigmata of rheumatoid arthritis, and has tenderness and swelling of the left 3rd PIP. No other active joints Extremities: Yes: WNL Edema: No Peripheral Pulses WNL: Yes Peripheral Pulses: Left Radial: 2+, Right Radial: 2+, Left Doralis Pedis: 2+, Right Dorsalis Pedis: 2+, Left Femoral: 2+, Right Femoral: 2+ Integumentary: Yes: Incision (healed knee scar) Neurological: Yes: WNL, Alert, Oriented, Weakness LABS Laboratory Results - last 24 hr 08/06/19 08/07/19 08/07/19 21:29 06:07 08:17 WBC 12.1 H RBC 4.54 Hgb 8.9 L Hct 28.1 L MCV 61.8 L MCH 19.5 L MCHC 31.6 L RDW 17.0 H Plt Count 276 D MPV 9.8 Absolute Neuts (auto) 6.7 Neutrophils % 55.2 Lymphocytes % 35.0 D Monocytes % 5.2 Eosinophils % 3.4 D Basophils % 1.2 Nucleated RBC % 0 Sodium Potassium Chloride Carbon Dioxide Anion Gap BUN Creatinine Est GFR (CKD-EPI)AfAm Est GFR (CKD-EPI)NonAf POC Glucometer 350 168 Random Glucose Calcium Magnesium Total Bilirubin AST ALT Alkaline Phosphatase Total Protein Albumin 08/07/19 08/07/19 08:17 11:52 WBC RBC Hgb Hct MCV MCH MCHC RDW Plt Count MPV Absolute Neuts (auto) Neutrophils % Lymphocytes % Monocytes % Eosinophils % Basophils % Nucleated RBC % Sodium 139 Potassium 3.9 Chloride 106 Carbon Dioxide 27 Anion Gap 6 L BUN 30.5 H Creatinine 1.1 Est GFR (CKD-EPI)AfAm 54.53 Est GFR (CKD-EPI)NonAf 47.05 POC Glucometer 202 Random Glucose 125 H Calcium 9.0 Magnesium 2.1 Total Bilirubin 0.1 L AST 8 L ALT 20 Alkaline Phosphatase 69 Total Protein 7.4 Albumin 2.7 L HOSPITAL COURSE: Date of Admission:08/04/19 Date of Discharge: 08/07/19 Problem List - Problems (1) Dementia Assessment/Plan: c/w namenda supportive care Code(s): F03.90 - UNSPECIFIED DEMENTIA WITHOUT BEHAVIORAL DISTURBANCE (2) Diabetes mellitus type 2 in obese Assessment/Plan: BGM AC/HS with novolog sliding scale well controlled can restart januvia/glucophage on DC Code(s): E11.69 - TYPE 2 DIABETES MELLITUS WITH OTHER SPECIFIED COMPLICATION; E66.9 - OBESITY, UNSPECIFIED (3) Fibromyalgia Assessment/Plan: appreciate rheumatology comsultation c/w prednisone 20mg daily x 1 more day and then 15mg -wheelchair bound at home c/w PT Code(s): M79.7 - FIBROMYALGIA (4) Hyperlipidemia Assessment/Plan: c/w atrovastatin low fat/chol diet Code(s): E78.5 - HYPERLIPIDEMIA, UNSPECIFIED (5) Prophylactic measure Assessment/Plan: FEN Fluids: adequate PO intake Electrolytes: monitor & replete as needed Nutrition: low fat/chol DVT moderate risk sq heparin while she was in patient Dispo Maintain as inpatient full code discharge planning to SNF Code(s): Z29.9 - ENCOUNTER FOR PROPHYLACTIC MEASURES, UNSPECIFIED Minutes to complete discharge: 45 Discharge Summary Problems reviewed: Yes Reason For Visit: FLARE OF RHEUMATOID ARTHRITIS Current Active Problems Chronic pain (Acute) Dementia (Acute) Diabetes mellitus type 2 in obese (Acute) Fibromyalgia (Acute) Hyperlipidemia (Acute) Hyperlipidemia associated with type 2 diabetes mellitus (Acute) Inability to ambulate due to multiple joints (Acute) Prophylactic measure (Acute) Rheumatoid arthritis (Acute) Rheumatoid arthritis flare (Acute) Health Concerns: HOSPITAL COURSE: Date of Admission:08/04/19 Date of Discharge: 08/07/19 Problem List - Problems (1) Dementia Assessment/Plan: c/w namenda supportive care Code(s): F03.90 - UNSPECIFIED DEMENTIA WITHOUT BEHAVIORAL DISTURBANCE (2) Diabetes mellitus type 2 in obese Assessment/Plan: BGM AC/HS with novolog sliding scale well controlled can restart januvia/glucophage on DC Code(s): E11.69 - TYPE 2 DIABETES MELLITUS WITH OTHER SPECIFIED COMPLICATION; E66.9 - OBESITY, UNSPECIFIED (3) Fibromyalgia Assessment/Plan: appreciate rheumatology comsultation c/w prednisone 20mg daily x 1 more day and then 15mg -wheelchair bound at home c/w PT Code(s): M79.7 - FIBROMYALGIA (4) Hyperlipidemia Assessment/Plan: c/w atrovastatin low fat/chol diet Code(s): E78.5 - HYPERLIPIDEMIA, UNSPECIFIED (5) Prophylactic measure Assessment/Plan: FEN Fluids: adequate PO intake Electrolytes: monitor & replete as needed Nutrition: low fat/chol DVT moderate risk sq heparin while she was in patient Dispo Maintain as inpatient full code discharge planning to SNF Code(s): Z29.9 - ENCOUNTER FOR PROPHYLACTIC MEASURES, UNSPECIFIED - Instructions Diet, Activity, Other Instructions: DISCHARGE YOUR VISIT You came to the hospital because you have increasing pain and inability to move out of bed. MEDICATIONS Please continue to take your home medications as prescribed. There was some changes Continue all home medications with the exception of a decrease in PREDNISONE to 15mg daily DIET Continue your home diet ADDITIONAL CARE Please make an appointment to see your primary care provider, 1 week from when you leave rehab ADDITIONAL INFORMATION Please call 911 or come directly to the emergency department if you experience unusual headache, vision change, shortness of breath, chest pain, numbness, tingling, loss of alertness/awareness, loss of function, unusual bleeding or any alarming symptoms. Thank you for allowing me to care for you. Aaron Kaplan, [facility], [facility] [phone] Referrals: Geraldo Moeller MD [Primary Care Provider] - - Home Medications Comprehensive Discharge Medication List: Ambulatory Orders Amlodipine Besylate 5 mg PO DAILY 08/04/19 Atorvastatin Ca [Lipitor] 20 mg PO HS 08/04/19 Diclofenac Sodium/Misoprostol [Diclofenac-Misoprost 50-0.2 Tb] 1 each PO TID PRN 08/04/19 Folic Acid 1 mg PO DAILY 08/04/19 Gabapentin 300 mg PO HS 08/04/19 Gabapentin 600 mg PO BID 08/04/19 Glimepiride 1 mg PO DAILY 08/04/19 Hydrochlorothiazide 25 mg PO DAILY 08/04/19 Memantine HCl 10 mg PO BID 08/04/19 Metformin HCl [Glucophage] 1,000 mg PO BID 08/04/19 Sitagliptin Phosphate [Januvia] 100 mg PO DAILY 08/04/19 Acetaminophen [Tylenol .Regular Strength -] 650 mg PO Q6H PRN tablet 08/07/19 Diclofenac Sodium [Voltaren -] 50 mg PO BID tablet. 08/07/19 Docusate Sodium [Colace -] 100 mg PO TID capsule 08/07/19 Sennosides [Senna -] 2 tab PO HS PRN tablet 08/07/19 predniSONE [Deltasone -] 15 mg PO DAILY #30 tablet 08/07/19 Problem List - Problems (1) Dementia Code(s): F03.90 - UNSPECIFIED DEMENTIA WITHOUT BEHAVIORAL DISTURBANCE (2) Diabetes mellitus type 2 in obese Code(s): E11.69 - TYPE 2 DIABETES MELLITUS WITH OTHER SPECIFIED COMPLICATION; E66.9 - OBESITY, UNSPECIFIED (3) Fibromyalgia Code(s): M79.7 - FIBROMYALGIA (4) Hyperlipidemia Code(s): E78.5 - HYPERLIPIDEMIA, UNSPECIFIED (5) Prophylactic measure Code(s): Z29.9 - ENCOUNTER FOR PROPHYLACTIC MEASURES, UNSPECIFIED (6) Rheumatoid arthritis Code(s): M06.9 - RHEUMATOID ARTHRITIS, UNSPECIFIED (7) Chronic pain Code(s): G89.29 - OTHER CHRONIC PAIN This patient is new to me today: No Emergency Visit: Yes ED Registration Date: 08/04/19 Care time: The patient presented to the Emergency Department on the above date and was hospitalized for further evaluation of their emergent condition. Critical Care patient: No - Discharge Referral Referred to [facility] Med P.C.: No
--- NOTE | 2019-08-07 19:13 | HOSP ---
Subjective - Review of Symptoms Events since last encounter: BGM 446. Guven 14 u of novolog insulin. Pending transfer to SNF. Will keep until morning and monitor BGM overnight. CM/RN aware Physical Examination Vital Signs: Vital Signs Temperature 99.1 F 08/07/19 18:00 Pulse Rate 101 H 08/07/19 18:00 Respiratory Rate 18 08/07/19 18:00 Blood Pressure 155/95 08/07/19 18:00 O2 Sat by Pulse Oximetry (%) 95 08/06/19 21:00 Labs: CBC, BMP 08/07/19 08:17 08/07/19 08:17
[2019-08-07] MEDS: ATORVASTATIN CA 20 MG TABLET (FP) PO SCH (21:33)
[2019-08-08] MEDS: metFORMIN HCL 500 MG TABLET (FP) PO SCH ×2 (06:23→16:29)
[2019-08-08] MEDS: DOCUSATE SODIUM 100 MG CAPSULE (FP) PO SCH ×2 (06:23→14:24)
[2019-08-08] MEDS: HEPARIN NA (PORCINE) 5,000 UNITS/ML 1ML VIAL SQ SCH ×2 (06:23→14:24)
[2019-08-08] MEDS: INSULIN SLIDING SCALE (NOVOLOG) 1 VIAL SQ SCH ×3 (06:24→18:00)
[2019-08-08] MEDS ORDERED: GLIMEPIRIDE 1 MG TABLET PO SCH (07:00)
[2019-08-08 10:08] LABS: BASO % 0.7 % (0-2.0); EOS % 5.7 % (0-4.5); HEMATOCRIT 27.6 % (32.4-45.2); HEMOGLOBIN 8.7 GM/dL (10.7-15.3); MCHC 31.6 g/dl (32.0-36.0); MEAN CELL VOLUME 62.1 fl (80-96); MEAN PLT VOLUME 10.1 fl (7.5-11.1); MONO % 5.9 % (3.8-10.2); NEUT % 47.7 % (42.8-82.8); PLATELET COUNT 325 K/MM3 (134-434); RBC 4.44 M/mm3 (3.60-5.2); RDW 16.8 % (11.6-15.6); WHITE BLOOD COUNT 14.6 K/mm3 (4.0-10.0)
[2019-08-08 10:09] LABS: ALBUMIN 2.7 g/dl (3.4-5.0); BILIRUBIN,TOTAL 0.1 mg/dL (0.2-1); BLOOD UREA NITROGEN 27.3 mg/dL (7-18); CALCIUM 9.5 mg/dL (8.5-10.1); MAGNESIUM 1.9 mg/dL (1.8-2.4); TOT PROT 7.2 g/dl (6.4-8.2)
[2019-08-08 10:21] LABS: MCH 19.6 pg (25.7-33.7)
[2019-08-08] MEDS: GABAPENTIN 300 MG CAPSULE PO SCH (10:52)
[2019-08-08] MEDS: amLODIPine BESYLATE 5 MG TABLET (FP) PO SCH (10:52)
[2019-08-08] MEDS: FOLIC ACID 1 MG TABLET (FP) PO SCH (10:52)
[2019-08-08] MEDS: DICLOFENAC SODIUM 25 MG TABLET.DR PO SCH (10:52)
[2019-08-08] MEDS: HYDROCHLOROTHIAZIDE 25 MG TABLET (FP) PO SCH (10:52)
[2019-08-08] MEDS: MEMANTINE HCL 10 MG TABLET (FP) PO SCH (10:52)
[2019-08-08] MEDS: predniSONE 20 MG TABLET (UD) PO SCH (10:52)
[2019-08-08] MEDS ORDERED: INSULIN (NOVOLOG) ASPART 100 UNITS/ML 10ML VIAL ONE (11:25)
--- NOTE | 2019-08-08 11:34 | PN ---
Progress Note (short form) - Note Progress Note: Patient medically stable for discharge to [facility]. BG well controlled overnight. Joints remain stiff and swollen. Continue with steroids at 15mg daily Constitutional: Yes: Well Nourished, No Distress, Calm Eyes: Yes: WNL, Conjunctiva Clear HENT: Yes: WNL, Atraumatic, Normocephalic Neck: Yes: WNL, Supple, Trachea Midline Cardiovascular: Yes: WNL, Regular Rate and Rhythm Respiratory: Yes: WNL, Regular, CTA Bilaterally Gastrointestinal: Yes: WNL, Normal Bowel Sounds ...Rectal Exam: Yes: Deferred Genitourinary: Yes: WNL Breast(s): Yes: WNL Musculoskeletal: Yes: Back Pain, Joint Stiffness, Joint Swelling, Muscle Weakness (wheelchair bound) Subluxation of MCPs and stigmata of rheumatoid arthritis, and has tenderness and swelling of the left 3rd PIP. No other active joints Extremities: Yes: WNL Edema: No Peripheral Pulses WNL: Yes Peripheral Pulses: Left Radial: 2+, Right Radial: 2+, Left Doralis Pedis: 2+, Right Dorsalis Pedis: 2+, Left Femoral: 2+, Right Femoral: 2+ Integumentary: Yes: Incision (healed knee scar) Neurological: Yes: WNL, Alert, Oriented, Weakness Problem List - Problems (1) Dementia Code(s): F03.90 - UNSPECIFIED DEMENTIA WITHOUT BEHAVIORAL DISTURBANCE (2) Diabetes mellitus type 2 in obese Code(s): E11.69 - TYPE 2 DIABETES MELLITUS WITH OTHER SPECIFIED COMPLICATION; E66.9 - OBESITY, UNSPECIFIED (3) Fibromyalgia Code(s): M79.7 - FIBROMYALGIA (4) Hyperlipidemia Code(s): E78.5 - HYPERLIPIDEMIA, UNSPECIFIED (5) Prophylactic measure Code(s): Z29.9 - ENCOUNTER FOR PROPHYLACTIC MEASURES, UNSPECIFIED (6) Rheumatoid arthritis Code(s): M06.9 - RHEUMATOID ARTHRITIS, UNSPECIFIED (7) Chronic pain Code(s): G89.29 - OTHER CHRONIC PAIN Visit type - Emergency Visit Emergency Visit: Yes ED Registration Date: 08/04/19 Care time: The patient presented to the Emergency Department on the above date and was hospitalized for further evaluation of their emergent condition. - New Patient This patient is new to me today: No - Critical Care Critical Care patient: No - Discharge Referral Referred to [facility] Med P.C.: No
[2019-08-08 15:13] LABS: ANISOCYTOSIS 1+; MACROCYTOSIS 0; PLATELET ESTIMATE NORMAL; TARGET CELLS 2+
[2019-08-08 15:40] VITALS: BP 110/70; PULSE 105; TEMP 98
[2019-08-08] MEDS: ACETAMINOPHEN 325 MG TABLET (FP) PO PRN (16:28)
[2019-08-09] MEDS ORDERED: predniSONE 10 MG TABLET (UD) PO SCH (10:00)
== END 2019-08-08 16:57 | DRG 546 ==
LOC: JER 11:56 → JERBED 16:33 → J5S 21:43
PROVIDERS: ATTEND Nurse Practitioner Acute Care
DX: M06.9 Rheumatoid arthritis, unspecified (principal); J98.11 Atelectasis; G89.29 Other chronic pain; E78.00 Pure hypercholesterolemia, unspecified; J45.909 Unspecified asthma, uncomplicated; M79.7 Fibromyalgia; D64.9 Anemia, unspecified; I10 Essential (primary) hypertension; E66.9 Obesity, unspecified; Z68.35 Body mass index [BMI] 35.0-35.9, adult; E11.69 Type 2 diabetes mellitus with other specified complication; F03.90 Unspecified dementia, unspecified severity, without behavioral disturbance, psychotic disturbance, mood disturbance, and anxiety; Z99.3 Dependence on wheelchair
CPT/HCPCS: 36415; 71045-TC-FY; 80048; 80053; 81003; 82550; 82962; 83735; 83880; 84100; 84443; 84484; 85025; 85027; 85651; 87086; 93005; 93010; 97116-GP; 97161-GP; 99284-25; J1644

== ENCOUNTER 2020-06-11 23:45 | Inpatient (IN) | payer OTHER, BC ==
[2020-06-12 01:53] LABS: BASO % 1.8 % (0-2.0); EOS % 4.5 % (0-4.5); HEMATOCRIT 38.7 % (32.4-45.2); HEMOGLOBIN 11.8 GM/dL (10.7-15.3); LYMPH % 28.7 % (8-40); MCH 20.2 pg (25.7-33.7); MCHC 30.4 g/dl (32.0-36.0); MEAN CELL VOLUME 66.4 fl (80-96); MEAN PLT VOLUME 10.5 fl (7.5-11.1); MONO % 8.6 % (3.8-10.2); NEUT % 56.4 % (42.8-82.8); PLATELET COUNT 211 K/MM3 (134-434); RBC 5.83 M/mm3 (3.60-5.2); RDW 17.7 % (11.6-15.6); WHITE BLOOD COUNT 10.5 K/mm3 (4.0-10.0)
[2020-06-12 02:04] LABS: CHLORIDE 95 mmol/L (98-107); POTASSIUM 4.8 mmol/L (3.5-5.1); SODIUM 133 mmol/L (136-145)
[2020-06-12 02:05] LABS: ALBUMIN 3.1 g/dl (3.4-5.0); ANION GAP 9 MMOL/L (8-16); BLOOD UREA NITROGEN 11.9 mg/dL (7-18); CALCIUM 9.3 mg/dL (8.5-10.1); CO2 28 mmol/L (21-32); INR 0.97 (0.83-1.09)
[2020-06-12 02:07] LABS: ACTIVATED PTT 31.5 SECONDS (25.2-36.5)
[2020-06-12 02:08] LABS: SGPT/ALT 17 U/L (13-61)
[2020-06-12 02:09] LABS: CREATININE 1.7 mg/dL (0.55-1.3); SGOT/AST 10 U/L (15-37)
[2020-06-12 02:11] LABS: ALK PHOS 106 U/L (45-117); BILIRUBIN,TOTAL 0.3 mg/dL (0.2-1); TOT PROT 8.3 g/dl (6.4-8.2)
[2020-06-12 02:23] LABS: GLUCOSE,RANDOM 695 mg/dL (74-106)
[2020-06-12] MEDS ORDERED: SODIUM CHLORIDE 0.9% 500 ML INFUS.BAG IV ONE (02:50)
[2020-06-12 03:00] LABS: PLATELET ESTIMATE ADEQUATE
[2020-06-12 03:54] LABS: EPI CELLS 6 /uL (0-25.1); HYALINE CASTS 0 /uL (0-3.1); PH,URINE 6.5 (5.0-8.0); URINE APPEARANCE CLEAR; URINE BACTERIA 1071 /uL (0-1359); URINE BILIRUBIN NEGATIVE (NEGATIVE); URINE COLOR YELLOW; URINE GLUCOSE (UA) 3+ (NEGATIVE); URINE KETONE NEGATIVE (NEGATIVE); URINE LEUK ESTERASE TRACE (NEGATIVE); URINE NITRITE NEGATIVE (NEGATIVE); URINE PROTEIN NEGATIVE (NEGATIVE); URINE RBC 7 /uL (0-23.9); URINE UROBILINOGEN 0.2 mg/dL (0.2-1.0); URINE WBC 379 /uL (0-25.8)
[2020-06-12] MEDS ORDERED: CEFTRIAXONE 1,000 MG in DEXTROSE 5%-WATER - 50 ML IVPB ONE (04:21)
[2020-06-12] MEDS ORDERED: CEFTRIAXONE 1 GM/50 ML BAG ONE (04:41)
[2020-06-12 05:40] LABS: VENOUS BASE EXCESS -0.3 mmol/L (-2-2); VENOUS O2 SATURATION 75.5 % (70-80); VENOUS PCO2 51.1 mmHg (38-52); VENOUS PH 7.329 (7.310-7.410)
[2020-06-12] MEDS ORDERED: INSULIN REGULAR HUMAN 100 UNITS/ML *VIAL SQ ONE (06:05)
[2020-06-12] MEDS ORDERED: INSULIN REGULAR HUMAN 100 UNITS/ML *VIAL IVPUSH ONE (06:05)
[2020-06-12] MEDS ORDERED: ACETAMINOPHEN 325 MG TABLET (FP) PO PRN (08:55)
[2020-06-12] MEDS: SODIUM CHLORIDE 1,000 ML IV SCH (11:11)
[2020-06-12] MEDS: INSULIN SLIDING SCALE (NOVOLOG) 1 VIAL SQ SCH ×3 (11:11→21:35)
[2020-06-12] MEDS: HEPARIN NA (PORCINE) 5,000 UNITS/ML 1ML VIAL SQ SCH (21:21)
[2020-06-12] MEDS: INSULIN (LEVEMIR) 100 UNITS/ML UNITS SQ SCH (21:33)
[2020-06-12 23:23] VITALS: BMI 30.5
[2020-06-13] MEDS: INSULIN SLIDING SCALE (NOVOLOG) 1 VIAL SQ SCH ×4 (06:07→21:53)
[2020-06-13 08:58] LABS: HEMATOCRIT 35.2 % (32.4-45.2); HEMOGLOBIN 10.8 GM/dL (10.7-15.3); MCHC 30.7 g/dl (32.0-36.0); MEAN CELL VOLUME 64.8 fl (80-96); MEAN PLT VOLUME 11.9 fl (7.5-11.1); PLATELET COUNT 184 K/MM3 (134-434); RBC 5.44 M/mm3 (3.60-5.2); RDW 17.4 % (11.6-15.6); WHITE BLOOD COUNT 9.8 K/mm3 (4.0-10.0)
[2020-06-13 09:02] LABS: MCH 19.8 pg (25.7-33.7)
[2020-06-13 09:03] LABS: POTASSIUM 5.2 mmol/L (3.5-5.1)
[2020-06-13 09:07] LABS: BLOOD UREA NITROGEN 12.1 mg/dL (7-18); CALCIUM 9.3 mg/dL (8.5-10.1); MAGNESIUM 2.1 mg/dL (1.8-2.4)
[2020-06-13 09:10] LABS: CREATININE 1.1 mg/dL (0.55-1.3)
[2020-06-13 09:11] LABS: PHOSPHOROUS 3.9 mg/dL (2.5-4.9)
[2020-06-13] MEDS ORDERED: PT OWN MED DRAWER 7, Y5N ONE (09:15)
[2020-06-13] MEDS: INSULIN (LEVEMIR) 100 UNITS/ML UNITS SQ SCH ×2 (09:27→21:54)
[2020-06-13] MEDS: MULTIVITAMINS (DAILY MVI) TABLET (FP) PO SCH (09:30)
[2020-06-13] MEDS: CYANOCOBALAMIN 1,000 MCG TABLET (FP) PO SCH (09:30)
[2020-06-13] MEDS: HEPARIN NA (PORCINE) 5,000 UNITS/ML 1ML VIAL SQ SCH ×2 (09:31→21:54)
[2020-06-13] MEDS: SODIUM CHLORIDE 1,000 ML IV SCH (11:36)
[2020-06-13] MEDS ORDERED: cefTRIAXone SODIUM 1 GM VIAL ONE (15:18)
[2020-06-13] MEDS ORDERED: DEXTROSE 5%-WATER - 50 ML IVPB ONE (15:18)
[2020-06-13] MEDS: CEFTRIAXONE 1 GM in DEXTROSE 5%-WATER - 50 ML IVPB SCH (15:21)
[2020-06-14] MEDS: INSULIN SLIDING SCALE (NOVOLOG) 1 VIAL SQ SCH ×4 (06:23→22:08)
[2020-06-14] MEDS: INSULIN (LEVEMIR) 100 UNITS/ML UNITS SQ SCH ×2 (06:24→22:08)
[2020-06-14] MEDS: CYANOCOBALAMIN 1,000 MCG TABLET (FP) PO SCH (09:48)
[2020-06-14] MEDS ORDERED: cefTRIAXone SODIUM 1 GM VIAL ONE (10:14)
[2020-06-14] MEDS ORDERED: DEXTROSE 5%-WATER - 50 ML IVPB ONE (10:14)
[2020-06-14] MEDS: HEPARIN NA (PORCINE) 5,000 UNITS/ML 1ML VIAL SQ SCH ×3 (10:16→22:00)
[2020-06-14] MEDS: CEFTRIAXONE 1 GM in DEXTROSE 5%-WATER - 50 ML IVPB SCH (10:16)
[2020-06-14] MEDS: MULTIVITAMINS (DAILY MVI) TABLET (FP) PO SCH (10:17)
[2020-06-14 11:53] LABS: BASO % 1.4 % (0-2.0); EOS % 4.2 % (0-4.5); HEMATOCRIT 32.5 % (32.4-45.2); HEMOGLOBIN 10.3 GM/dL (10.7-15.3); LYMPH % 27.8 % (8-40); MCH 20.6 pg (25.7-33.7); MCHC 31.7 g/dl (32.0-36.0); MEAN CELL VOLUME 64.9 fl (80-96); MEAN PLT VOLUME 10.6 fl (7.5-11.1); MONO % 6.9 % (3.8-10.2); NEUT % 59.7 % (42.8-82.8); PLATELET COUNT 181 K/MM3 (134-434); WHITE BLOOD COUNT 8.9 K/mm3 (4.0-10.0)
[2020-06-14 12:13] LABS: POTASSIUM 4.6 mmol/L (3.5-5.1)
[2020-06-14 12:14] LABS: CALCIUM 8.6 mg/dL (8.5-10.1)
[2020-06-14 12:19] LABS: CREATININE 1.1 mg/dL (0.55-1.3)
[2020-06-14 12:20] LABS: BLOOD UREA NITROGEN 11.4 mg/dL (7-18)
[2020-06-14] MEDS: predniSONE 5 MG TABLET (UD) PO SCH (15:05)
[2020-06-14] MEDS: MEMANTINE HCL 10 MG TABLET (FP) PO SCH ×2 (15:05→22:00)
[2020-06-14] MEDS: amLODIPine BESYLATE 5 MG TABLET (FP) PO SCH (15:06)
[2020-06-14] MEDS: GABAPENTIN 300 MG CAPSULE PO SCH ×2 (15:06→22:00)
[2020-06-14] MEDS ORDERED: PT OWN MED DRAWER 7, Y5N ONE (16:16)
[2020-06-14] MEDS: AMPICILLIN NA/SULBACTAM NA 3 GM in SODIUM CHLORIDE 100 ML IVPB SCH (17:03)
[2020-06-14 21:46] LABS: BLOOD UREA NITROGEN 15.9 mg/dL (7-18)
[2020-06-14 21:47] LABS: CREATININE 1.4 mg/dL (0.55-1.3)
[2020-06-15] MEDS ORDERED: PT OWN MED DRAWER 7, Y5N ONE ×2 (03:10→16:07)
[2020-06-15] MEDS: AMPICILLIN NA/SULBACTAM NA 3 GM in SODIUM CHLORIDE 100 ML IVPB SCH ×3 (03:28→17:02)
[2020-06-15] MEDS: GABAPENTIN 300 MG CAPSULE PO SCH ×3 (06:11→21:18)
[2020-06-15] MEDS: HEPARIN NA (PORCINE) 5,000 UNITS/ML 1ML VIAL SQ SCH ×3 (06:11→21:18)
[2020-06-15] MEDS: INSULIN (LEVEMIR) 100 UNITS/ML UNITS SQ SCH (06:12)
[2020-06-15] MEDS: INSULIN SLIDING SCALE (NOVOLOG) 1 VIAL SQ SCH ×4 (06:12→21:19)
[2020-06-15 10:36] LABS: BASO % 1.9 % (0-2.0); EOS % 4.7 % (0-4.5); HEMOGLOBIN 9.7 GM/dL (10.7-15.3); LYMPH % 32.8 % (8-40); MCHC 30.4 g/dl (32.0-36.0); MEAN CELL VOLUME 64.1 fl (80-96); MONO % 4.1 % (3.8-10.2); NEUT % 56.5 % (42.8-82.8); RBC 4.99 M/mm3 (3.60-5.2); RDW 17.3 % (11.6-15.6); WHITE BLOOD COUNT 10.5 K/mm3 (4.0-10.0)
[2020-06-15] MEDS: CYANOCOBALAMIN 1,000 MCG TABLET (FP) PO SCH (10:40)
[2020-06-15] MEDS: MULTIVITAMINS (DAILY MVI) TABLET (FP) PO SCH (10:41)
[2020-06-15] MEDS: MEMANTINE HCL 10 MG TABLET (FP) PO SCH ×2 (10:41→21:18)
[2020-06-15] MEDS: predniSONE 5 MG TABLET (UD) PO SCH (10:41)
[2020-06-15 10:49] LABS: MCH 19.5 pg (25.7-33.7)
[2020-06-15 10:59] LABS: POTASSIUM 3.9 mmol/L (3.5-5.1)
[2020-06-15 11:01] LABS: CALCIUM 8.8 mg/dL (8.5-10.1)
[2020-06-15 11:02] LABS: ALBUMIN 2.3 g/dl (3.4-5.0); BLOOD UREA NITROGEN 13.7 mg/dL (7-18); MAGNESIUM 2.1 mg/dL (1.8-2.4)
[2020-06-15 11:05] LABS: CREATININE 1.1 mg/dL (0.55-1.3)
[2020-06-15 11:06] LABS: BILIRUBIN,TOTAL 0.2 mg/dL (0.2-1); PHOSPHOROUS 4.1 mg/dL (2.5-4.9); TOT PROT 6.4 g/dl (6.4-8.2)
[2020-06-15 11:44] LABS: ANISOCYTOSIS 2+; MACROCYTOSIS 0; PLATELET ESTIMATE NORMAL
[2020-06-15 11:49] LABS: PLATELET COUNT 199 K/MM3 (134-434)
[2020-06-15] MEDS ORDERED: INSULIN (LEVEMIR) 100 UNITS/ML UNITS SQ ONE (12:08)
[2020-06-15] MEDS ORDERED: FUROSEMIDE 40 MG/4 ML INJECTABLE VIAL IVPUSH ONE (16:57)
[2020-06-15] MEDS ORDERED: FUROSEMIDE 40 MG/4 ML INJECTABLE VIAL ONE (16:59)
[2020-06-16] MEDS: AMPICILLIN NA/SULBACTAM NA 3 GM in SODIUM CHLORIDE 100 ML IVPB SCH ×3 (01:56→18:00)
[2020-06-16] MEDS ORDERED: INSULIN (NOVOLOG) ASPART 100 UNITS/ML 10ML VIAL ONE (02:25)
[2020-06-16] MEDS: HEPARIN NA (PORCINE) 5,000 UNITS/ML 1ML VIAL SQ SCH ×3 (06:15→22:44)
[2020-06-16] MEDS: GABAPENTIN 300 MG CAPSULE PO SCH ×3 (06:15→22:45)
[2020-06-16] MEDS: INSULIN SLIDING SCALE (NOVOLOG) 1 VIAL SQ SCH ×4 (06:16→22:41)
[2020-06-16] MEDS: INSULIN (LEVEMIR) 100 UNITS/ML UNITS SQ SCH ×3 (06:17→22:42)
[2020-06-16 08:25] LABS: BASO % 1.2 % (0-2.0); HEMOGLOBIN 9.5 GM/dL (10.7-15.3); LYMPH % 30.1 % (8-40); MCHC 29.7 g/dl (32.0-36.0); MEAN CELL VOLUME 64.9 fl (80-96); MEAN PLT VOLUME 11.6 fl (7.5-11.1); MONO % 7.8 % (3.8-10.2); NEUT % 56.9 % (42.8-82.8); PLATELET COUNT 203 K/MM3 (134-434); RBC 4.92 M/mm3 (3.60-5.2); RDW 17.2 % (11.6-15.6); WHITE BLOOD COUNT 12.7 K/mm3 (4.0-10.0)
[2020-06-16 08:27] LABS: MCH 19.3 pg (25.7-33.7)
[2020-06-16 08:42] LABS: POTASSIUM 3.9 mmol/L (3.5-5.1)
[2020-06-16 08:46] LABS: CALCIUM 9.1 mg/dL (8.5-10.1)
[2020-06-16 08:47] LABS: ALBUMIN 2.4 g/dl (3.4-5.0); BLOOD UREA NITROGEN 20.6 mg/dL (7-18)
[2020-06-16 08:49] LABS: CREATININE 1.1 mg/dL (0.55-1.3)
[2020-06-16 08:51] LABS: BILIRUBIN,TOTAL 0.2 mg/dL (0.2-1); TOT PROT 6.6 g/dl (6.4-8.2)
[2020-06-16] MEDS ORDERED: PT OWN MED DRAWER 7, Y5N ONE ×2 (09:38→17:47)
[2020-06-16] MEDS: predniSONE 5 MG TABLET (UD) PO SCH (10:45)
[2020-06-16] MEDS: MEMANTINE HCL 10 MG TABLET (FP) PO SCH ×2 (10:45→22:45)
[2020-06-16] MEDS: amLODIPine BESYLATE 5 MG TABLET (FP) PO SCH (10:46)
[2020-06-16] MEDS: MULTIVITAMINS (DAILY MVI) TABLET (FP) PO SCH (10:46)
[2020-06-16] MEDS: CYANOCOBALAMIN 1,000 MCG TABLET (FP) PO SCH (10:46)
[2020-06-17] MEDS ORDERED: PT OWN MED DRAWER 7, Y5N ONE ×2 (02:36→10:43)
[2020-06-17] MEDS: AMPICILLIN NA/SULBACTAM NA 3 GM in SODIUM CHLORIDE 100 ML IVPB SCH ×3 (02:38→17:18)
[2020-06-17] MEDS: GABAPENTIN 300 MG CAPSULE PO SCH ×3 (06:13→21:58)
[2020-06-17] MEDS: HEPARIN NA (PORCINE) 5,000 UNITS/ML 1ML VIAL SQ SCH ×3 (06:13→21:57)
[2020-06-17] MEDS: INSULIN (LEVEMIR) 100 UNITS/ML UNITS SQ SCH ×2 (06:13→21:52)
[2020-06-17] MEDS: INSULIN SLIDING SCALE (NOVOLOG) 1 VIAL SQ SCH ×4 (06:14→21:53)
[2020-06-17 07:00] LABS: HEMATOCRIT 30.5 % (32.4-45.2); HEMOGLOBIN 9.2 GM/dL (10.7-15.3); MCHC 30.1 g/dl (32.0-36.0); MEAN CELL VOLUME 64.9 fl (80-96); MEAN PLT VOLUME 11.8 fl (7.5-11.1); PLATELET COUNT 204 K/MM3 (134-434); RDW 17.2 % (11.6-15.6); WHITE BLOOD COUNT 10.8 K/mm3 (4.0-10.0)
[2020-06-17 07:03] LABS: MCH 19.6 pg (25.7-33.7)
[2020-06-17 07:29] LABS: POTASSIUM 4.1 mmol/L (3.5-5.1)
[2020-06-17 07:33] LABS: ALBUMIN 2.4 g/dl (3.4-5.0); CALCIUM 8.8 mg/dL (8.5-10.1)
[2020-06-17 07:34] LABS: BLOOD UREA NITROGEN 20.7 mg/dL (7-18); MAGNESIUM 2.1 mg/dL (1.8-2.4)
[2020-06-17 07:36] LABS: CREATININE 1.2 mg/dL (0.55-1.3); PHOSPHOROUS 3.8 mg/dL (2.5-4.9)
[2020-06-17 07:38] LABS: BILIRUBIN,TOTAL 0.6 mg/dL (0.2-1); TOT PROT 6.5 g/dl (6.4-8.2)
[2020-06-17] MEDS: MEMANTINE HCL 10 MG TABLET (FP) PO SCH ×2 (10:45→21:57)
[2020-06-17] MEDS: FERROUS SO4 325 MG TABLET (FP) PO SCH (10:45)
[2020-06-17] MEDS: predniSONE 5 MG TABLET (UD) PO SCH (10:45)
[2020-06-17] MEDS: CYANOCOBALAMIN 1,000 MCG TABLET (FP) PO SCH (10:45)
[2020-06-17] MEDS: amLODIPine BESYLATE 5 MG TABLET (FP) PO SCH (10:45)
[2020-06-17] MEDS: MULTIVITAMINS (DAILY MVI) TABLET (FP) PO SCH (10:53)
[2020-06-17 13:00] LABS: HEMATOCRIT 32.4 % (32.4-45.2); HEMOGLOBIN 9.7 GM/dL (10.7-15.3); MCHC 30.1 g/dl (32.0-36.0); MEAN CELL VOLUME 65.4 fl (80-96); MEAN PLT VOLUME 10.6 fl (7.5-11.1); PLATELET COUNT 200 K/MM3 (134-434); RBC 4.95 M/mm3 (3.60-5.2); WHITE BLOOD COUNT 13.4 K/mm3 (4.0-10.0)
[2020-06-17 13:02] LABS: MCH 19.7 pg (25.7-33.7)
[2020-06-17 14:07] LABS: ANISOCYTOSIS 3+; MACROCYTOSIS 0; PLATELET ESTIMATE NORMAL; TARGET CELLS 2+
[2020-06-17] MEDS: DOCUSATE SODIUM 100 MG CAPSULE (FP) PO SCH ×2 (17:34→21:57)
[2020-06-18] MEDS ORDERED: PT OWN MED DRAWER 7, Y5N ONE ×2 (02:59→09:17)
[2020-06-18] MEDS: AMPICILLIN NA/SULBACTAM NA 3 GM in SODIUM CHLORIDE 100 ML IVPB SCH ×3 (03:00→17:27)
[2020-06-18] MEDS: HEPARIN NA (PORCINE) 5,000 UNITS/ML 1ML VIAL SQ SCH ×3 (05:44→21:41)
[2020-06-18] MEDS: GABAPENTIN 300 MG CAPSULE PO SCH ×3 (05:44→21:43)
[2020-06-18] MEDS: INSULIN SLIDING SCALE (NOVOLOG) 1 VIAL SQ SCH ×4 (06:10→21:44)
[2020-06-18] MEDS: INSULIN (LEVEMIR) 100 UNITS/ML UNITS SQ SCH ×2 (06:10→21:41)
[2020-06-18] MEDS: DOCUSATE SODIUM 100 MG CAPSULE (FP) PO SCH ×2 (09:20→21:41)
[2020-06-18] MEDS: predniSONE 5 MG TABLET (UD) PO SCH (09:20)
[2020-06-18] MEDS: FERROUS SO4 325 MG TABLET (FP) PO SCH (09:20)
[2020-06-18] MEDS: amLODIPine BESYLATE 5 MG TABLET (FP) PO SCH (09:20)
[2020-06-18] MEDS: MEMANTINE HCL 10 MG TABLET (FP) PO SCH ×2 (09:20→21:43)
[2020-06-18] MEDS: MULTIVITAMINS (DAILY MVI) TABLET (FP) PO SCH (09:20)
[2020-06-18] MEDS: CYANOCOBALAMIN 1,000 MCG TABLET (FP) PO SCH (09:20)
[2020-06-18 12:41] LABS: BASO % 0.4 % (0-2.0); EOS % 4.7 % (0-4.5); HEMATOCRIT 29.1 % (32.4-45.2); LYMPH % 23.8 % (8-40); MCH 20.1 pg (25.7-33.7); MCHC 30.9 g/dl (32.0-36.0); MEAN PLT VOLUME 11.4 fl (7.5-11.1); MONO % 7.5 % (3.8-10.2); NEUT % 63.6 % (42.8-82.8); PLATELET COUNT 209 K/MM3 (134-434); RBC 4.47 M/mm3 (3.60-5.2)
[2020-06-18 12:53] LABS: CALCIUM 8.9 mg/dL (8.5-10.1)
[2020-06-18 12:54] LABS: ALBUMIN 2.3 g/dl (3.4-5.0); BLOOD UREA NITROGEN 16.6 mg/dL (7-18); MAGNESIUM 2.1 mg/dL (1.8-2.4)
[2020-06-18 12:57] LABS: CREATININE 1.2 mg/dL (0.55-1.3)
[2020-06-18 12:58] LABS: BILIRUBIN,TOTAL 0.2 mg/dL (0.2-1)
[2020-06-18 12:59] LABS: TOT PROT 6.8 g/dl (6.4-8.2)
[2020-06-18 14:53] LABS: ANISOCYTOSIS 2+; MACROCYTOSIS 0; PLATELET ESTIMATE NORMAL; TARGET CELLS 2+
[2020-06-19] MEDS: AMPICILLIN NA/SULBACTAM NA 3 GM in SODIUM CHLORIDE 100 ML IVPB SCH ×2 (02:45→09:02)
[2020-06-19] MEDS ORDERED: PT OWN MED DRAWER 7, Y5N ONE ×2 (03:19→08:47)
[2020-06-19] MEDS: GABAPENTIN 300 MG CAPSULE PO SCH ×2 (05:35→14:01)
[2020-06-19] MEDS: HEPARIN NA (PORCINE) 5,000 UNITS/ML 1ML VIAL SQ SCH ×2 (05:35→14:01)
[2020-06-19] MEDS: INSULIN (LEVEMIR) 100 UNITS/ML UNITS SQ SCH (06:07)
[2020-06-19] MEDS: INSULIN SLIDING SCALE (NOVOLOG) 1 VIAL SQ SCH ×2 (06:08→11:46)
[2020-06-19 07:06] LABS: EOS % 3.4 % (0-4.5); HEMATOCRIT 27.3 % (32.4-45.2); HEMOGLOBIN 8.4 GM/dL (10.7-15.3); LYMPH % 40.4 % (8-40); MCHC 30.6 g/dl (32.0-36.0); MEAN CELL VOLUME 64.4 fl (80-96); MEAN PLT VOLUME 11.7 fl (7.5-11.1); NEUT % 47.2 % (42.8-82.8); PLATELET COUNT 192 K/MM3 (134-434); RBC 4.24 M/mm3 (3.60-5.2); RDW 17.1 % (11.6-15.6); WHITE BLOOD COUNT 11.5 K/mm3 (4.0-10.0)
[2020-06-19 07:24] LABS: POTASSIUM 3.9 mmol/L (3.5-5.1)
[2020-06-19 07:29] LABS: ALBUMIN 2.1 g/dl (3.4-5.0); BLOOD UREA NITROGEN 17.7 mg/dL (7-18); CALCIUM 8.2 mg/dL (8.5-10.1); MCH 19.8 pg (25.7-33.7)
[2020-06-19 07:30] LABS: MAGNESIUM 1.8 mg/dL (1.8-2.4)
[2020-06-19 07:32] LABS: CREATININE 1.2 mg/dL (0.55-1.3); PHOSPHOROUS 3.1 mg/dL (2.5-4.9)
[2020-06-19 07:33] LABS: BILIRUBIN,TOTAL 0.7 mg/dL (0.2-1); TOT PROT 6.1 g/dl (6.4-8.2)
[2020-06-19] MEDS: CYANOCOBALAMIN 1,000 MCG TABLET (FP) PO SCH (09:01)
[2020-06-19] MEDS: DOCUSATE SODIUM 100 MG CAPSULE (FP) PO SCH (09:01)
[2020-06-19] MEDS: MEMANTINE HCL 10 MG TABLET (FP) PO SCH (09:01)
[2020-06-19] MEDS: predniSONE 5 MG TABLET (UD) PO SCH (09:01)
[2020-06-19] MEDS: MULTIVITAMINS (DAILY MVI) TABLET (FP) PO SCH (09:01)
[2020-06-19] MEDS: amLODIPine BESYLATE 5 MG TABLET (FP) PO SCH (09:01)
[2020-06-19] MEDS: FERROUS SO4 325 MG TABLET (FP) PO SCH (09:01)
[2020-06-19 15:54] VITALS: PULSE 88; TEMP 98.2
[2020-06-19 16:07] VITALS: BP 148/77
== END 2020-06-19 16:54 | DRG 871 ==
LOC: JER 23:45 → JERBED 06-12 05:34 → JICU 06-12 20:17
PROVIDERS: ADMIT Student in an Organized Health Care Education/Training Program; ATTEND Internal Medicine
DX: A41.9 Sepsis, unspecified organism (principal); I50.31 Acute diastolic (congestive) heart failure; J96.01 Acute respiratory failure with hypoxia; S22.42XA Multiple fractures of ribs, left side, initial encounter for closed fracture; N17.9 Acute kidney failure, unspecified; N39.0 Urinary tract infection, site not specified; J98.11 Atelectasis; E11.65 Type 2 diabetes mellitus with hyperglycemia; F03.90 Unspecified dementia, unspecified severity, without behavioral disturbance, psychotic disturbance, mood disturbance, and anxiety; W19.XXXA Unspecified fall, initial encounter; Y93.9 Activity, unspecified; Y92.9 Unspecified place or not applicable; Y99.9 Unspecified external cause status; D50.9 Iron deficiency anemia, unspecified; D72.829 Elevated white blood cell count, unspecified; E86.0 Dehydration
CPT/HCPCS: 36415; 70450-TC; 70480-TC; 71045-TC-FY; 71260-TC; 72125-TC; 72128-TC; 72131-TC; 74177-TC; 76775-TC; 80048; 80053; 81003; 82010; 82550; 82607; 82728; 82803; 82962; 83036; 83540; 83550; 83735; 84100; 84484; 85025; 85027; 85610; 85730; 86850; 86900; 86901; 87040; 87086; 87186; 93005; 93010; 93306-TC; 94010; 97116-GP; 97161-GP; 99291; C9803; J1644; U0003